=== PATIENT | male | born 1985 | race Caucasian/White ===

== ENCOUNTER 2019-05-30 10:09 | Emergency (ER) | payer OTHER ==
[~2019-05-30] VITALS: Ht 175.3 cm; Wt 131.5 kg
--- NOTE | 2019-05-30 10:10 | NUR ---
PATIENT TO ER #5
--- NOTE | 2019-05-30 10:15 | NUR ---
pt arrives from w/ c/o left mid back pain. Pt states pain becomes aggrivated w/ movement.
[2019-05-30 10:21] VITALS: BP_SYST 149
--- NOTE | 2019-05-30 10:21 | NUR ---
ER at bedside examining patient.
[2019-05-30] MEDS ORDERED: KETOROLAC TROMETHAMINE 60 MG/2 ML VIAL IM ONE (10:45)
--- NOTE | 2019-05-30 10:53 | NUR ---
medicated the pt w/ Toradol per MD order. Will reassess
--- NOTE | 2019-05-30 11:07 | NUR ---
pt reports feeling better
--- NOTE | 2019-05-30 11:10 | NUR ---
Patient given written and verbal discharge instructions and verbalizes understanding. ER MD discussed with patient the results and treatment provided. Patient in stable condition. ID arm band removed. Rx of Naprosyn given. Patient educated on pain management and to follow up with PMD. Pain Scale 3/10. Opportunity for questions provided and answered. Medication side effect fact sheet provided.
== END 2019-05-30 11:09 | disposition home or self-care (01) ==
LOC: SED 10:09
DX: S23.8XXA Sprain of other specified parts of thorax, initial encounter (principal); F17.290 Nicotine dependence, other tobacco product, uncomplicated; Z71.6 Tobacco abuse counseling; Z88.8 Allergy status to other drugs, medicaments and biological substances; X58.XXXA Exposure to other specified factors, initial encounter; Y93.89 Activity, other specified; Y92.89 Other specified places as the place of occurrence of the external cause; Y99.8 Other external cause status
CPT/HCPCS: 71045; 96372; 99283; J1885